=== PATIENT | male | born 1965 | race Caucasian/White ===

== ENCOUNTER → 2021-10-29 | Outpatient (CLI) | payer BC, OTHER ==
[~2021-10-29] MED LIST: 24 HOUR ALLERG9.9 ML; ALLOPURINOL300 MG PO; BACTROBAN OINT22 GM EXT; GABAPENTIN600 MG PO; HYDROCODONE-AC1 EAC1 PO; NAPROXEN500 MG PO; PREDNISONE 10 M10 MG PO; PROTONIX 40 MG40 M1 PO; SULFAMETHOXAZO1 EACH PO; VIAGRA100 MG PO; ZANAFLEX 4 MG TA4 MG PO; ZOCOR40 MG PO; ZYRTEC10 M3 PO
[2021-10-29 12:29] LABS: HEMOGLOBIN 15.8 gm/dl (14.0-17.5); RED BLOOD COUNT 4.36 M/UL (4.20-5.50)
[2021-10-29 12:44] LABS: BUN/CREATININE RATIO 21 (0-10)
== END ==
LOC: OPSV2 10:30 → EDSTATUS 10:30 → OPSV2 11:37
PROVIDERS: Orthopaedic Surgery
DX: Z01.818 Encounter for other preprocedural examination (principal); M16.11 Unilateral primary osteoarthritis, right hip
CPT/HCPCS: 36415; 71046; 80048; 85025

== ENCOUNTER → 2021-11-10 | Outpatient (CLI) | payer BC, OTHER ==
[~2021-11-10] MED LIST changes: +OXYCONTIN20 MG PO
[2021-11-10 13:25] LABS: BUN/CREATININE RATIO 16 (0-10)
== END ==
LOC: LAB 12:39
PROVIDERS: Orthopaedic Surgery
DX: Z01.812 Encounter for preprocedural laboratory examination (principal); M16.11 Unilateral primary osteoarthritis, right hip
CPT/HCPCS: 36415; 80048; 86850; 86900; 86901

== ENCOUNTER → 2021-11-11 | Day surgery (SDC) | payer BC, OTHER ==
[~2021-11-11] VITALS: Ht 172.7 cm; Wt 88.9 kg
== END | disposition home or self-care (01) ==
LOC: OR 05:33 → EDSTATUS 07:30 → OR 07:30
DX: M16.11 Unilateral primary osteoarthritis, right hip (principal); G89.29 Other chronic pain; E78.5 Hyperlipidemia, unspecified; M41.9 Scoliosis, unspecified; K21.9 Gastro-esophageal reflux disease without esophagitis; F11.20 Opioid dependence, uncomplicated; F17.210 Nicotine dependence, cigarettes, uncomplicated; Z88.1 Allergy status to other antibiotic agents; Z79.1 Long term (current) use of non-steroidal anti-inflammatories (NSAID); Z79.899 Other long term (current) drug therapy
CPT/HCPCS: 73502; 76000; 97162; 97166; 97530; C1713; C1776; J0171; J0690; J1100; J2250; J2405; J2704; J2795; J3010; J3370; J7050; J7120

== ENCOUNTER 2021-11-22 15:44 | Emergency (ER) | payer BC, OTHER | END 2021-11-22 16:50 | disposition home or self-care (01) | LOC: ER1 15:44 | DX: R60.0 Localized edema (principal); F17.200 Nicotine dependence, unspecified, uncomplicated; Z88.0 Allergy status to penicillin | CPT/HCPCS: 93971; 99283 ==